=== PATIENT | female | born 1975 | race Caucasian/White ===

== ENCOUNTER 2019-06-12 18:32 | Emergency (ER) | payer MEDICAID ==
[~2019-06-12] VITALS: Ht 162.6 cm; Wt 59.1 kg
[2019-06-12 18:39] VITALS: Ht 162.6 cm; Wt 59.1 kg
[2019-06-12 20:41] VITALS: BP 120/82
== END 2019-06-12 20:40 | disposition home or self-care (01) ==
LOC: D.ER 18:32
DX: R51 Headache (principal); Y04.2XXA Assault by strike against or bumped into by another person, initial encounter; Y93.89 Activity, other specified; Y92.89 Other specified places as the place of occurrence of the external cause

== ENCOUNTER 2020-12-25 15:45 | Outpatient (CLI) | payer OTHER ==
[2019-06-12 18:39] VITALS: BMI 22.3
== END 2020-12-25 23:59 | disposition home or self-care (01) ==
LOC: D.MAMMO 15:45
PROVIDERS: ATTEND Nurse Practitioner Family
DX: Z12.13 Encounter for screening for malignant neoplasm of small intestine (principal)